=== PATIENT | female | born 1935 | race Caucasian/White ===

== ENCOUNTER 2016-08-15 09:25 | Emergency (ER) | payer MEDICARE, OTHER ==
[2016-08-15 15:02] LABS: HEMOGLOBIN 12.6 gm/dl (12.3-15.3); RED BLOOD COUNT 4.36 M/UL (4.00-5.10); WHITE BLOOD COUNT 8.4 K/UL (4.5-11.0)
== END 2016-08-15 16:30 | disposition home or self-care (01) ==
LOC: EDBD 09:25 → ER1 09:25
PROVIDERS: Family Medicine
DX: M54.9 Dorsalgia, unspecified (principal); M25.552 Pain in left hip; I10 Essential (primary) hypertension; Z88.0 Allergy status to penicillin; Z88.8 Allergy status to other drugs, medicaments and biological substances; Z79.899 Other long term (current) drug therapy
CPT/HCPCS: 36415; 72131; 72192; 80053; 85025; 96374; 99284; J1885; J7040

== ENCOUNTER → 2016-08-17 | Outpatient (CLI) | payer MEDICARE, OTHER ==
[~2016-08-17] MED LIST: ALENDRONATE SOD70 MG PO; ANORO ELLIPTA1 EACH INH; CALCIUM + VITA1 EACH PO; DILTIAZEM ER240 M1 PO; FLONASE ALLER15.8 ML INH; INCRUSE ELLI62.5 MCG INH; LEVOTHYROXINE100 MCG PO; LIORESAL TAB 1010 MG PO; LIPITOR TAB 2020 MG PO; MELOXICAM7.5 MG PO; PROTONIX40 MG PO; SPIRIVA HANDIH18 MCG INH; VITAMIN B-1000 MCG/M IM; VITAMIN D-32000 UNIT PO; XOPENEX HFA15 GM INH
== END ==
LOC: RAD 14:41
DX: S76.011D Strain of muscle, fascia and tendon of right hip, subsequent encounter (principal); S76.012D Strain of muscle, fascia and tendon of left hip, subsequent encounter; Z88.2 Allergy status to sulfonamides; Z88.8 Allergy status to other drugs, medicaments and biological substances
CPT/HCPCS: 73522

== ENCOUNTER 2016-08-19 10:31 | Emergency (ER) | payer MEDICARE, OTHER ==
[2016-08-19 13:21] LABS: HEMOGLOBIN 13.4 gm/dl (12.3-15.3); RED BLOOD COUNT 4.58 M/UL (4.00-5.10); WHITE BLOOD COUNT 10.3 K/UL (4.5-11.0)
== END 2016-08-19 17:15 | disposition home or self-care (01) ==
LOC: ER1 10:31
PROVIDERS: Emergency Medicine
DX: M54.5 Low back pain (principal); M25.552 Pain in left hip; J40 Bronchitis, not specified as acute or chronic; I10 Essential (primary) hypertension; E78.5 Hyperlipidemia, unspecified; Z88.2 Allergy status to sulfonamides
CPT/HCPCS: 36415; 36600; 57010; 71020; 80053; 81001; 82803; 84484; 85025; 94640; 94664; 96360; 99284

== ENCOUNTER 2016-08-22 15:23 | Inpatient (IN) | payer MEDICARE, OTHER ==
[~2016-08-22] VITALS: Ht 172.7 cm; Wt 55.0 kg
[2016-08-22 16:02] LABS: HEMOGLOBIN 13.5 gm/dl (12.3-15.3); RED BLOOD COUNT 4.68 M/UL (4.00-5.10); WHITE BLOOD COUNT 14.2 K/UL (4.5-11.0)
[2016-08-22 16:26] LABS: BUN/CREATININE RATIO 20 (0-10)
[2016-08-23] MEDS ORDERED: ALENDRONATE SOD70 MG PO (03:09)
[2016-08-23] MEDS ORDERED: ANORO ELLIPTA1 EACH INH (03:10)
[2016-08-23] MEDS ORDERED: DILTIAZEM ER240 M1 PO (03:10)
[2016-08-23] MEDS ORDERED: CALCIUM + VITA1 EACH PO (03:10)
[2016-08-23] MEDS ORDERED: FLONASE ALLER15.8 ML INH (03:11)
[2016-08-23] MEDS ORDERED: INCRUSE ELLI62.5 MCG INH (03:11)
[2016-08-23] MEDS ORDERED: LEVOTHYROXINE100 MCG PO (03:12)
[2016-08-23] MEDS ORDERED: SPIRIVA HANDIH18 MCG INH (03:12)
[2016-08-23] MEDS ORDERED: PROTONIX40 MG PO (03:12)
[2016-08-23] MEDS ORDERED: LIPITOR TAB 2020 MG PO (03:12)
[2016-08-23] MEDS ORDERED: VITAMIN B-1000 MCG/M IM (03:13)
[2016-08-23] MEDS ORDERED: VITAMIN D-32000 UNIT PO (03:14)
[2016-08-23] MEDS ORDERED: XOPENEX HFA15 GM INH (03:15)
[2016-08-23] MEDS ORDERED: MELOXICAM7.5 MG PO (03:15)
[2016-08-23] MEDS ORDERED: LIORESAL TAB 1010 MG PO (03:15)
[2016-08-23 04:39] LABS: HEMOGLOBIN 11.2 gm/dl (12.3-15.3); RED BLOOD COUNT 3.88 M/UL (4.00-5.10); WHITE BLOOD COUNT 9.4 K/UL (4.5-11.0)
[2016-08-23 04:55] LABS: BUN/CREATININE RATIO 19 (0-10)
[2016-08-24 04:45] LABS: HEMOGLOBIN 10.8 gm/dl (12.3-15.3); RED BLOOD COUNT 3.79 M/UL (4.00-5.10); WHITE BLOOD COUNT 7.1 K/UL (4.5-11.0)
[2016-08-28 04:16] LABS: BUN/CREATININE RATIO 19 (0-10)
[2016-08-29 04:44] LABS: HEMOGLOBIN 11.6 gm/dl (12.3-15.3); RED BLOOD COUNT 4.11 M/UL (4.00-5.10); WHITE BLOOD COUNT 7.2 K/UL (4.5-11.0)
[2016-08-29 05:01] LABS: BUN/CREATININE RATIO 20 (0-10)
[2016-08-30 04:32] LABS: HEMOGLOBIN 11.7 gm/dl (12.3-15.3); RED BLOOD COUNT 4.16 M/UL (4.00-5.10)
== END 2016-08-31 11:42 | DRG 190 ==
LOC: ER1 15:23 → ZEROF 19:21 → MED SURG 4 20:56
PROVIDERS: Specialist/Technologist Athletic Trainer; ADMIT Emergency Medicine
DX: J44.0 Chronic obstructive pulmonary disease with (acute) lower respiratory infection (principal); J18.9 Pneumonia, unspecified organism; G92 Toxic encephalopathy; S32.059A Unspecified fracture of fifth lumbar vertebra, initial encounter for closed fracture; S32.119A Unspecified Zone I fracture of sacrum, initial encounter for closed fracture; N18.4 Chronic kidney disease, stage 4 (severe); F17.210 Nicotine dependence, cigarettes, uncomplicated; E03.9 Hypothyroidism, unspecified; K21.9 Gastro-esophageal reflux disease without esophagitis; Z88.2 Allergy status to sulfonamides; I12.9 Hypertensive chronic kidney disease with stage 1 through stage 4 chronic kidney disease, or unspecified chronic kidney disease; M81.0 Age-related osteoporosis without current pathological fracture; D63.8 Anemia in other chronic diseases classified elsewhere; E55.9 Vitamin D deficiency, unspecified
CPT/HCPCS: 36415; 36600; 57010; 70450; 71010; 71020; 71250; 76705; 80048; 80053; 80202; 80307; 81001; 82140; 82550; 82553; 82607; 82728; 82803; 83540; 83550; 83605; 83874; 84439; 84443; 84481; 84484; 85025; 85027; 85610; 85730; 87040; 87070; 87205; 93005; 94640; 94664; 96360; 96365; 96375; 97110; 97116; 97530; 99284; 99285; J1650; J1956; J2310; J2543; J3110; J3370; J3420; J7030; J7050; J7070

== ENCOUNTER 2021-04-03 23:34 | Inpatient (IN) | payer MEDICARE, OTHER ==
[~2021-04-03] VITALS: Ht 170.2 cm; Wt 56.7 kg
[~2021-04-03 23:34] MED LIST changes: -ANORO ELLIPTA1 EACH INH; +ASPIRIN EC81 MG PO; +ATORVASTATIN CA20 MG PO; +BRILINTA 90 MG90 MG PO; +COZAAR 50MG TAB50 MG PO; +METOPROLOL SUCC25 MG PO; +NITROGLYCERIN0.4 MG SL; +NITROSTAT0.4 MG SL; +SYNTHROID25 MCG PO; +ULTRACET TABLE1 EACH PO
[2021-04-04 01:11] LABS: HEMOGLOBIN 9.4 gm/dl (12.3-15.3); RED BLOOD COUNT 3.08 M/UL (4.00-5.10)
[2021-04-04] MEDS ORDERED: ANORO ELLIPTA1 EACH INH (03:10)
[2021-04-04] MEDS ORDERED: LIPITOR40 MG PO (12:25)
[2021-04-04] MEDS ORDERED: LEVOTHYROXINE50 MCG PO (12:27)
[2021-04-04] MEDS ORDERED: ALLOPURINOL100 MG PO (13:54)
--- NOTE | 2021-04-05 01:39 | NUR ---
DURING 2349 NEUROVASCULAR CHECK, SUPPLIED PT WITH I/S AND EDUCATIED PT ON HOW TO USE IT WHILE AWAKE. PT LITTLE CONFUSED ON IT, BUT WAS WILLING TO DEMOSTRATE BACK HOW TO USE IT. WILL HELP PT USE WHEN AWAKE.
[2021-04-05 08:17] LABS: RED BLOOD COUNT 2.26 M/UL (4.00-5.10); WHITE BLOOD COUNT 9.7 K/UL (4.5-11.0)
[2021-04-05 08:18] LABS: HEMOGLOBIN 6.6 gm/dl (12.3-15.3)
[2021-04-05 11:10] LABS: HEMOGLOBIN 6.7 gm/dl (12.3-15.3)
[2021-04-06 07:36] LABS: RED BLOOD COUNT 3.09 M/UL (4.00-5.10); WHITE BLOOD COUNT 6.9 K/UL (4.5-11.0)
[2021-04-07 06:29] LABS: HEMOGLOBIN 9.2 gm/dl (12.3-15.3); RED BLOOD COUNT 3.1 M/UL (4.00-5.10); WHITE BLOOD COUNT 5.8 K/UL (4.5-11.0)
[2021-04-08 07:27] LABS: HEMOGLOBIN 9.5 gm/dl (12.3-15.3); RED BLOOD COUNT 3.14 M/UL (4.00-5.10); WHITE BLOOD COUNT 6.1 K/UL (4.5-11.0)
[2021-04-09 06:53] LABS: HEMOGLOBIN 9.8 gm/dl (12.3-15.3); RED BLOOD COUNT 3.2 M/UL (4.00-5.10)
[2021-04-10 03:31] LABS: HEMOGLOBIN 9.5 gm/dl (12.3-15.3); RED BLOOD COUNT 3.18 M/UL (4.00-5.10); WHITE BLOOD COUNT 5.5 K/UL (4.5-11.0)
[2021-04-11 03:31] LABS: HEMOGLOBIN 9.6 gm/dl (12.3-15.3); RED BLOOD COUNT 3.2 M/UL (4.00-5.10)
[2021-04-11 03:36] LABS: WHITE BLOOD COUNT 7.2 K/UL (4.5-11.0)
[2021-04-11 03:53] LABS: BUN/CREATININE RATIO 29 (0-10)
[2021-04-12 06:31] LABS: HEMOGLOBIN 9.9 gm/dl (12.3-15.3); RED BLOOD COUNT 3.24 M/UL (4.00-5.10)
[2021-04-12 06:44] LABS: WHITE BLOOD COUNT 9.1 K/UL (4.5-11.0)
[2021-04-12] MEDS ORDERED: FERROUS SULFAT325 M2 PO (08:44)
[2021-04-12] MEDS ORDERED: ACETAMINOPHEN500 MG PO ×2 (08:44→08:45)
== END 2021-04-12 15:31 | DRG 480 ==
LOC: ER1 23:34 → M/S 04-04 01:25 → CDU 04-04 01:25 → M/S 04-04 16:12
PROVIDERS: Emergency Medicine; Internal Medicine; ADMIT Internal Medicine
PROC: 0QS706Z Reposition Left Upper Femur with Intramedullary Internal Fixation Device, Open Approach (ICD-10-PCS; 2021-04-04)
PROC: 30233N1 Transfusion of Nonautologous Red Blood Cells into Peripheral Vein, Percutaneous Approach (ICD-10-PCS; principal; 2021-04-05)
DX: S72.142A Displaced intertrochanteric fracture of left femur, initial encounter for closed fracture (principal); E43 Unspecified severe protein-calorie malnutrition; N17.9 Acute kidney failure, unspecified; Z20.822 Contact with and (suspected) exposure to COVID-19; D62 Acute posthemorrhagic anemia; N39.0 Urinary tract infection, site not specified; R64 Cachexia; Z68.1 Body mass index [BMI] 19.9 or less, adult; D50.9 Iron deficiency anemia, unspecified; W01.0XXA Fall on same level from slipping, tripping and stumbling without subsequent striking against object, initial encounter; I25.10 Atherosclerotic heart disease of native coronary artery without angina pectoris; M10.9 Gout, unspecified; I25.5 Ischemic cardiomyopathy; E03.9 Hypothyroidism, unspecified; J44.9 Chronic obstructive pulmonary disease, unspecified; I12.9 Hypertensive chronic kidney disease with stage 1 through stage 4 chronic kidney disease, or unspecified chronic kidney disease; N18.30 Chronic kidney disease, stage 3 unspecified; E78.5 Hyperlipidemia, unspecified; K21.9 Gastro-esophageal reflux disease without esophagitis; Z96.641 Presence of right artificial hip joint; H91.90 Unspecified hearing loss, unspecified ear; M81.0 Age-related osteoporosis without current pathological fracture; Z95.1 Presence of aortocoronary bypass graft; Z90.49 Acquired absence of other specified parts of digestive tract; Z88.2 Allergy status to sulfonamides; Z88.8 Allergy status to other drugs, medicaments and biological substances; Z82.49 Family history of ischemic heart disease and other diseases of the circulatory system; Z80.3 Family history of malignant neoplasm of breast; Z79.82 Long term (current) use of aspirin; Z79.899 Other long term (current) drug therapy; I25.2 Old myocardial infarction
CPT/HCPCS: ECHO; 36415; 70450; 71045; 72125; 72170; 73090; 73502; 73552; 76000; 80048; 80053; 81001; 83540; 83550; 83735; 83880; 85014; 85018; 85025; 85027; 85610; 85730; 86850; 86900; 86901; 86920; 87086; 93005; 93306; 94640; 94760; 96374; 96375; 97110; 97110-GP-CQ; 97116; 97116-GP-CQ; 97161; 97165; 97530; 97530-GP-CQ; 99285; A6212; C1713; J0690; J1100; J1650; J2001; J2270; J2405; J2704; J3010; J7030; J7120; P9016; U0002